=== PATIENT | female | born 1950 | race Caucasian/White ===

== ENCOUNTER 2017-01-29 08:20 | Inpatient (IN) | payer MEDICARE, BC ==
[2017-01-27 11:53] LABS: HEMATOCRIT 32.6 % (35.0-45.0); HEMOGLOBIN 10.5 gm/dL (12.0-16.0); MEAN CELL VOLUME 90.7 FL (83-96); MEAN CORPUSCULAR HEMOGLOBIN 29.3 PG (28-34); MEAN CORPUSCULAR HGB CONC 32.3 g/dL (30-36); MEAN PLATELET VOLUME 8.7 FL (6.5-11.5); RED BLOOD COUNT 3.6 X10e (3.90-5.30)
[2017-01-27 12:10] LABS: INR 1.9
[2017-01-27 12:43] LABS: BUN/CREATININE RATIO 17.82; CALCIUM SERUM 9.2 mg/dL (8.4-10.2); CREATININE SERUM 2.3 mg/dL (0.6-1.4); GLOM FILT RATE Estimated 21.3 mL/min (>60); POTASSIUM 3.8 mmol/L (3.5-5.1)
[2017-01-27 17:47] LABS: CK TOTAL 41 IU/L (26-140)
[2017-01-27 18:07] LABS: URINE APPEARANCE CLEAR; URINE BILIRUBIN NEG (NEG); URINE BLOOD NEG (NEG); URINE COLOR YELLOW; URINE GLUCOSE NEG (NEG); URINE KETONE NEG (NEG); URINE LEUKOCYTE ESTERASE 1+ (NEG); URINE NITRATE NEG (NEG); URINE PROTEIN NEG (NEG); URINE SPECIFIC GRAVITY 1.014 (1.003-1.035); URINE UROBILINOGEN 0.2 MG/DL (NEG)
[2017-01-27 18:10] LABS: URINE BACTERIA AUWI 1+ (NEGATIVE); URINE SQUAMOUS EPITHELIAL CELL OCC /[HPF]
[2017-01-28 06:27] LABS: HEMATOCRIT 32.3 % (35.0-45.0); HEMOGLOBIN 10.3 gm/dL (12.0-16.0); MEAN CELL VOLUME 90.5 FL (83-96); RED BLOOD COUNT 3.57 X10e (3.90-5.30); RED CELL DISTRIBUTION WIDTH 17.2 % (11.0-15.5); WHITE BLOOD COUNT 14.9 X10e3 (4.0-10.5)
[2017-01-28 06:41] LABS: INR 1.9; PROTHROMBIN TIME (PATIENT) 20.5 SECONDS (9.6-11.5)
[2017-01-28 07:11] LABS: BUN/CREATININE RATIO 20.86; CALCIUM SERUM 9.8 mg/dL (8.4-10.2); CREATININE SERUM 2.3 mg/dL (0.6-1.4); GLOM FILT RATE Estimated 21.3 mL/min (>60); POTASSIUM 4.2 mmol/L (3.5-5.1)
--- NOTE | ~2017-01-29 | CO ---
Unit #: [id number] #: [id number] Patient: ELISE SALGUERO [id number] [address] [place], [place] [address] [id number] I MR#: [id number] NAME: ELISE SALGUERO ROOM: 576 Age: 66 Sex: F Admission Date: 01/27/2017 : 1950 Attending Physician: Charlotte Zavaleta M.D. CONSULTATION REPORT REASON FOR CONSULTATION Respiratory failure and pneumonia. CHIEF COMPLAINT Shortness of breath. HISTORY OF PRESENT ILLNESS This patient basically is a 66-year-old female with past medical history of congestive heart failure and cardiomyopathy status post aortic and tricuspid valve replacement. She is on chronic anticoagulation. Has a history of atrial fibrillation. She had a recent stroke in September 2016. Recovered from that with some swallowing difficulty. Continues to smoke about 10 cigarettes per day. Presented with complaint of generalized weakness and mild shortness of breath. At an outside facility was found to have possible right-sided pneumonia on chest x-ray. I am seeing the patient at the bedside. Currently on 3 liters of oxygen, complaining of mild exertional dyspnea, some cough especially during eating. She was found to have elevated white count at 18,000 on admission at an outside facility and was started on antibiotics. She does complain of mild chills and rigors for the last few days. She had recent treatment with oral antibiotics as an outpatient and was also likely given p.o. steroids, as well. is sitting at the bedside today. The patient denies any recent history of travelling. No chest pain at present. REVIEW OF SYSTEMS Positive pallor. No edema. No cyanosis. No jaundice. Rest is as per history of present illness. The rest of a 12-point review of systems has been reviewed and is negative. PAST MEDICAL HISTORY 1. Aortic valve replacement. 2. Mitral valve replacement. 3. Cardiomyopathy. 4. Atrial fibrillation. 5. Hypertension. 6. Pacemaker placement. 7. History of recent stroke. PAST SURGICAL HISTORY Valve replacements, as discussed above. HOME MEDICATIONS Aspirin, Lipitor, digoxin, Lasix, iron, Synthroid, lisinopril, Metoprolol, Namenda, Paxil, venlafaxine, vitamin B12, vitamin B6 and Coumadin. Unit #: [id number] #: [id number] Patient: ELISE SALGUERO PHYSICAL EXAM TODAY VITAL SIGNS: Temperature is 97, pulse 65, respirations 16, blood pressure 120/52. She is on 3 liters oxygen, not using any accessory muscles. NEUROLOGIC: Awake, alert and oriented x3. CVS: S1, S2. RESPIRATORY: Bilateral mild basilar rhonchi. GI: Nontender. Soft. Bowel sounds positive. EXTREMITIES: No edema. SKIN: No rashes, no ulcer. LYMPHATIC: No lymphadenopathy. MUSCULOSKELETAL: No abnormality. DIAGNOSTIC STUDIES IMAGING: Chest x-ray reviewed. Possible right-sided infiltrate with volume overload and underlying emphysema. LABORATORY: INR is 1.9. Her white count is 11. Creatinine is 2.3. ASSESSMENT 1. Acute congestive heart failure exacerbation. 2. History of chronic kidney disease. 3. Recent stroke. 4. Possible aspiration pneumonia. 5. Leukocytosis. PLAN At this point plan is to continue oxygen, bronchodilator, diuresis. Follow the cultures. Order a noncontrast CT of the chest, procalcitonin level. Will continue to monitor. Swallow evaluation has been requested. Exercise oximetry will be ordered. The patient has been counselled regarding smoking cessation. Discussed with the patient's family at the bedside. Thank you very much for this consultation. Will continue to follow along with you. Dictated by... Alejandra Breen/fannie TD: 01/27/2017 14:59 JOB #: [id number] CONSULTATION REPORT Page 1 of 1 X Luciano Phillip MD CONSULTATION REPORT
--- NOTE | ~2017-01-29 | CO ---
Unit #: [id number] #: [id number] Patient: ELISE SALGUERO [id number] [address] [place], [place] [address] [id number] I MR#: [id number] NAME: ELISE SALGUERO ROOM: 576 Age: 66 Sex: F Admission Date: 01/27/2017 : 1950 Attending Physician: Charlotte Zavaleta M.D. Consultation Date: 01/28/2017 CONSULTATION REPORT REASON FOR CONSULTATION Renal insufficiency. Thank you very much for asking me to see this patient in consultation. Ms. Elise Salguero is a 66-year-old, female who has a history of valvular heart disease, status post aortic and mitral valve replacement in 2013 with mechanical valves, history of some mild decrease EF on echo in the past who apparently went to [facility] emergency room due to weakness, some cough, nonproductive, no fevers or chills, just weakness and was transferred here for further workup and treatment. Patient was noted to have a creatinine of 2.3 here, it was 1.98 there. Patient was given some IV diuretics there for possible heart failure. Patient is accompanied by her and there is a caregiver also. Patient apparently in the past when she had her stroke several years ago, was told that she had abnormal kidney function and needed to see a kidney doctor, although she has not done that. Patient denies any long-term nonsteroidal use. Patient currently is alert. She denies any chest pain, shortness of breath, nausea, or vomiting currently. PAST MEDICAL HISTORY She has a history of a valvular heart disease, status post aortic and mitral valve replacement. She has a history of atrial fibrillation, sick sinus syndrome, status post pacemaker. She has a history of hypothyroidism. She has a history of gout. History of CVA. History of hypertension. History of COPD. History of a PE and history of rheumatic heart disease in the past. She has also a history of underlying dementia. History of iron deficiency anemia. She is also status post PEG placement for difficulty swallowing. She is status post coronary artery bypass graft as well. MEDICATIONS AT HOME Included Coumadin, Paxil, magnesium, inhalers, alprazolam, Lanoxin 4 days a week, levothyroxine, metoprolol, Namzaric, Norvasc 2.5 mg a day, Effexor, Betapace, multivitamins. CURRENT MEDICATIONS Levothyroxine, Zofran, Aricept, Namenda, pyridoxine, B12, Paxil, Maxipime, Coumadin, Combivent inhaler, Lopressor, Effexor, Norvasc, Niferex, Lanoxin, magnesium, aspirin, Xanax. ALLERGIES She is allergic to penicillin and sulfa. SOCIAL HISTORY Unit #: [id number] #: [id number] Patient: ELISE SALGUERO She still smokes according to her caregiver. . No alcohol. FAMILY HISTORY Noncontributory. REVIEW OF SYSTEMS As mentioned in the HPI. She denies any fevers, chills, visual problems, sinus problems, occasional cough, no hemoptysis, no neck pain or neck stiffness. No chest pain. She has no shortness of breath today. No abdominal pain. No problems urinating, starting stopping or burning. No lower extremity swelling. No recent seizures or strokes. PHYSICAL EXAMINATION GENERAL: She is alert and oriented. VITAL SIGNS: Temperature is 99.5, pulse 65-72, blood pressure 120 to 148/48 to 72. She had a 720 in and out x4. HEENT: She is normocephalic, atraumatic. Her pupils are equal, round and reactive to light. Extraocular muscles are intact. Hearing is decreased bilaterally but able to answer questions. Mouth is clear. No erythema and no exudates. NECK: Supple. No JVD. No adenopathy. CARDIAC: She appears to have a fairly regular rhythm without a rub. No S3 or S4. LUNGS: Occasional rhonchi only. No rales are appreciated. ABDOMEN: Bowel sounds positive. She has a feeding tube in upper abdomen, nontender, soft. EXTREMITIES: She has no lower extremity swelling. Her pulses are intact in upper and lower extremities. JOINTS: No joint pain or joint swelling. SKIN: No acute rashes. NEUROLOGIC: She is alert and able to move all extremities. : Deferred. DIAGNOSTIC STUDIES IMAGING STUDIES: Chest x-ray that showed cardiomegaly, no other abnormality. She had a CT of the chest without contrast that shows some atelectasis in the right lower lobe. Enlarged lymph node. No other major findings except for atrophy of her left kidney. LABORATORY STUDIES: Her sodium today is 137, potassium 4.2, chloride 107, bicarb is 19, BUN 48, creatinine 2.3, glucose 111, calcium 98. Troponin is 0.07. Her cholesterol is 207. CPK is 42. Her TSH is 0.36. Her procalcitonin is 0.12. Her INR is 1.9. Her hemoglobin is 10.3 with a white count of 14,900, platelets 251,000. Urinalysis shows specific gravity of 1.014. She has no proteinuria. She has 2-5 RBCs, 5-10 WBC, 1+ bacteria. Blood and urine cultures are pending. ASSESSMENT AND PLAN 1. Renal insufficiency: This is a lady who has probably chronic kidney disease at least by the history that I could tell but again I do not have any previous creatinines, except for it was 1.98 at [facility] two days ago. I would like to try to get a hold of some previous creatinines over the last couple of years or so to see if this is significantly chronic or not. Her urine has no significant proteinuria and questionable RBCs so I don't think she has any active glomerulonephritis going on. I do not see any evidence of any volume Unit #: [id number] #: [id number] Patient: ELISE SALGUERO on board. I am going to go ahead and give her two L of normal saline over the next 24 hours. Check a renal ultrasound. Check an SPEP and again get a hold of previous creatinines. Depending on what all this shows, depending on what further workup and treatment. For now, hold SELINA inhibitors and angiotensin receptor blockers, long-term PPI, nonsteroids, etc. 2. Possible UTI. On Maxipime and await urine culture results. 3. Heart disease as mentioned above. Workup underway. 4. History of CVA. 5. History of dysphagia. Swallowing study has been ordered. 6. History of COPD with still chronic smoking. Dictated by.Ruben Braswell M.D. LIZZETH/radha TD: 01/29/2017 07:12 JOB #: [id number] CONSULTATION REPORT Page 1 of 1 X Primo Braswell MD X CONSULTATION REPORT
--- NOTE | ~2017-01-29 | CR63 ---
[facility] A Service of [facility] & [facility] RADIOLOGY TEXT RESULTS PATIENT: ELISE SALGUERO LOCATION: [facility] 57- : [birth year] UNIT #: [id number] AGE: [address]: Charlotte Zavaleta MD SEX: F ORDER DR: [id number] [facility] [address] [place], [place] [address] [id number] I MR#: [id number] Acc #: [id number] NAME: ELISE SALGUERO : 1950 SEX: F STUDY DATE/TIME: 01/27/2017 14:39 UNIT: [facility] ROOM: [facility] STUDY DESCRIPTION: CR Chest 2 View Attending Physician: Charlotte Zavaleta M.D. Ordering Physician: Regulo Dawn M.D. MEDICAL IMAGING REPORT This report is preliminary unless electronic signature is present EXAM Chest x-ray 01/27 INDICATIONS Shortness of air and CHF. Symptoms started yesterday. History of smoking and CHF. FINDINGS PA and lateral views of the chest compared with 01/27/2014 at 05:38 hours. Right IJ line has been removed. Cardiomegaly stable status post valve repair and pacer placement. The lungs are clear. No pneumothorax. There is atherosclerotic disease in the aorta. IMPRESSION Stable cardiomegaly. History of valve repair. No acute findings in the chest. Dictated by... Brett Ponce Jr., M.D. THIS IS AN ELECTRONICALLY VERIFIED REPORT Brett Ponce Jr., M.D. at 01/27/2017 3:32 PM WILL/xiao TD: 01/27/2017 15:23 JOB #: [id number] MEDICAL IMAGING REPORT Page 1 of 1 COPY
--- NOTE | ~2017-01-29 | CT57 ---
[facility] A Service of [facility] & [facility] RADIOLOGY TEXT RESULTS PATIENT: ELISE SALGUERO LOCATION: [facility] 576-01 : [birth year] UNIT #: [id number] AGE: [address]: Charlotte Zavaleta MD SEX: F ORDER DR: [id number] [facility] [address] [place], [place] [address] [id number] I MR#: [id number] Acc #: [id number] NAME: ELISE SALGUERO : 1950 SEX: F STUDY DATE/TIME: 01/27/2017 14:44 UNIT: [facility] ROOM: [facility] STUDY DESCRIPTION: CT Chest Wo Cont Attending Physician: Charlotte Zavaleta M.D. Ordering Physician: Luciano Phillip M.D. MEDICAL IMAGING REPORT This report is preliminary unless electronic signature is present EXAM CT chest without contrast. HISTORY Cough, congestion, shortness of air for 2 days. [address]neumonia. TECHNIQUE This CT exam was performed with one or more of the following radiation dose reduction techniques: automatic exposure control, adjustment of mA and/or kV according to patient size, and iterative reconstruction. FINDINGS CT chest without contrast demonstrates subsegmental atelectasis in the posterior right lower lobe, and minimal atelectasis or scarring in the inferior right middle lobe. No airspace infiltrates. No pleural effusions. Mild pretracheal adenopathy measures 1.3 cm. No additional adenopathy. Sternotomy with aortic valve and mitral valve and tricuspid valve replacement. Moderately severe dilatation of the left atrium. Images of the upper abdomen demonstrate gastrostomy tube extends into the stomach. Severe generalized left renal parenchymal atrophy. Moderate parenchymal scarring in the partly visualized posterior right kidney. Multiple small gallstones. IMPRESSION 1. Mild atelectasis in the posterior right lower lobe and minimal linear atelectasis or scarring in the lateral and inferior right middle lobe. 2. No evidence of active disease in the lungs. 3. Single mildly enlarged pretracheal lymph node measures 1.3 cm. No additional adenopathy. 4. Sternotomy and cardiac valve prostheses with moderately severe dilatation of the left atrium. 5. Findings in the upper abdomen occlude gallstones, severe atrophy of the left kidney, and parenchymal scarring in the right kidney. [facility] A Service of [facility] RADIOLOGY TEXT RESULTS PATIENT: ELISE SALGUERO LOCATION: [facility] 576-01 : [birth year] UNIT #: [id number] AGE: [address]: Charlotte Zavaleta MD SEX: F ORDER DR: Dictated by... Ke Johnson M.D. THIS IS AN ELECTRONICALLY VERIFIED REPORT Ke Johnson M.D. at 01/27/2017 11:25 PM MARLENI/lavelle TD: 01/27/2017 15:54 JOB #: [id number] MEDICAL IMAGING REPORT Page 1 of 1 COPY
--- NOTE | ~2017-01-29 | EKG ---
PATIENT: ELISE SALGUERO UNIT #: [id number] Ventricular Rate: 67 BPM Atrial Rate: 67 BPM P-R Interval: 368 ms QRS Duration: 214 ms Q-T Interval: 538 ms QTC Calculation(Bezet): 568 ms Calculated R [place]: -45 degrees Calculated T [place]: 120 degrees Diagnosis Line: AV sequential or dual chamber electronic pacemaker Diagnosis Line: No previous ECGs available Diagnosis Line: Confirmed by MARILUZ MCGREGOR MD ([id number]) on Diagnosis Line: 01/31/2017 2:09:09 PM INTERPRETING MD: VALERIE
--- NOTE | ~2017-01-29 | A ---
[facility] Therapy DATE: 01/27/17 Patient: ELISE ELLIOTT JOSE M Physician: CELINE Address: [address] [place] [address] Room/Bed: [address] [place] [address], Zip: [place] [address] Admit Date: 01/27/17 Date of : [birth year] Height: 5 0 Weight: 113 51.4 NUTRITIONAL ASSESSMENT: REASON: Consult 66 yo female admitted for CHF PMH: Hypothyroidism, gout, stroke, dysphagia, HTN, s/p PEG Anthropometrics: Ht: 5'0" Wt: 51.4 kg (113#) BMI: 22.1 Labs: BUN 41, Creat 2.3, GFR 21.3 Meds: Vitamin B12, Coumadin, Vitamin B I/O & Bowel function: last BM unknown Skin Integrity: PEG in place Estimated Nutrition Needs: 5285-1734 kcal (25-30 kcal/kg) 51-62 g protein (1.0-1.2 g/kg) Assessment: Chart reviewed, events noted. Pt and pt's family was in room during time of visit. Pt had PEG placed 6-8 weeks ago 2' difficulty swallowing and wt loss. Per pt's family, pt's wt has been fluctuating since between 113-121#, stating UBW is ~117-118#. Pt's family reported bolusing Ensure if pt's intake is decreased that day. Pt reports consuming ~2 meals/d. LEAD NETWORK ARCHITECT eval pt and deemed pt appropriate for diet advancement- mech soft + NDD2 + nectar thick liquids. Plans in place for video swallow in the morning (01/28). RD encouraged adequate calorie and protein intake. Pt agreed to Ensure Pudding w/ lunch daily. RD also emphasized use of standard formula in place of Ensure for additional vitamins and minerals. Pt and family reported no questions at this time. RD to follow. See recommendations below. Dx: Inadequate oral intake RT dysphagia AEB pt and family report above, wt loss. Intervention: 1. Vanilla Ensure pudding daily 2. Jevity 1.2 BID w/ breakfast meal Monitoring, Evaluation and Goals: 1. PO intake; consume <75% of meals and supplements 2. Enteral nutrition; tolerance of bolus feeds 3. Weight; prevent unintentional weight loss [facility] DATE: 01/27/17 Patient: ELISE SALGUERO Physician: CELINE Address: [address] [place] [address] Room/Bed: [address] [place] [address], Zip: [place] [address] Admit Date: 01/27/17 Date of : [birth year] Height: 5 0 Weight: 113 51.4 Recommendations: 1. Order Vanilla Ensure pudding once daily w/ lunch. 2. Order bolus feeds of Jevity 1.2 BID w/ breakfast meal. 3. Appreciate family and staff to encourage adequate PO and supplement intake. 4. Contact homehealth to see if standard formula is covered under insurance. Pt is at a moderate nutritional risk. RD will f/u per protocol. Respectfully, Rena Gonzales, Custom Decorating Consultant Lis Reeves MS, RD, LD [facility] cc: client file
--- NOTE | ~2017-01-29 | US77 ---
[facility] A Service of [facility] RADIOLOGY TEXT RESULTS PATIENT: ELISE SALGUERO LOCATION: [facility] 57- : [birth year] UNIT #: [id number] AGE: [address]: Charlotte Zavaleta MD SEX: F ORDER DR: [id number] [facility] [address] [place], [place] [address] [id number] I MR#: [id number] Acc #: [id number] NAME: ELISE SALGUERO : 1950 SEX: F STUDY DATE/TIME: 01/28/2017 15:15 UNIT: [facility] ROOM: [facility] STUDY DESCRIPTION: US Kidney Bilateral Complete Attending Physician: Charlotte Zavaleta M.D. Ordering Physician: Vern Brasewll M.D. MEDICAL IMAGING REPORT This report is preliminary unless electronic signature is present EXAM Renal ultrasound 01/28/2017 HISTORY Acute renal failure, abnormal renal function tests on 01/28/2017 with elevated BUN of 48, elevated creatinine of 2.3. Abnormally low GFR of 21. FINDINGS Right kidney measures 10 cm while the left kidney measures 7 cm in longitudinal dimensions. There is no evidence of hydronephrosis or nephrolithiasis. No cystic or solid mass lesions were seen on either kidney. There is normal renal cortical echogenicity. Images of the bladder are normal. The uterus is diffusely enlarged and contains multiple fibroids. IMPRESSION 1. Negative renal ultrasound. 2. Images of the bladder are normal. 3. Diffusely enlarged leiomyomatous uterus. Dictated by... Jorge Alberto Monteiro M.D. THIS IS AN ELECTRONICALLY VERIFIED REPORT Jorge Alberto Monteiro M.D. at 01/29/2017 8:15 AM ORLY/xiao TD: 01/28/2017 18:44 JOB #: [id number] MEDICAL IMAGING REPORT Page 1 of 1 COPY
--- NOTE | ~2017-01-29 | HP ---
Unit #: [id number] #: [id number] Patient: ELISE SALGUERO [id number] [address] [place], [place] [address] [id number] MR#: [id number] NAME: ELISE SALGUERO ROOM: 576 Age: 66 Sex: F Admission Date: 01/27/2017 : 1950 Attending Physician: Charlotte Zavaleta M.D. HISTORY AND PHYSICAL HISTORY OF PRESENT ILLNESS This is a 66-year-old white female known to Dr. Bello with the past medical history of valvular heart disease with aortic insufficiency and mitral stenosis. The patient underwent a mechanical mitral and aortic valve replacement on 01/23/2014 with a tricuspid annuloplasty ring and coronary artery bypass grafting with saphenous vein graft to the PDA by Cristopher Peguero. Additional past medical history includes atrial fibrillation/atrial flutter, permanent pacemaker due to sick sinus syndrome, history of reported PE, hypertension, and active tobacco abuse. The patient also has a history of cerebrovascular accidents with her most recent event in September 2016 at the [facility]. A CODY was completed on 09/08/2016 and revealed a well-seated mitral prosthetic valve and aortic valve. There was no ASD, VSD, or PFO. There was no thrombus seen. She presented to [facility] on 01/26/2017 with complaints of weakness. She has also had some shortness of breath and a cough for the last three days. The patient's family reports a possible fever but they did not check her temperature. She has had a poor appetite. Her caregiver states that she has not been following her dietary restrictions after her stroke. She was supposed to be on nectar thick liquids but has been eating whatever she wants. She does have a PEG tube and uses Ensure with her tube but takes medications and other forms of nutrition orally. She has been observed with swallowing abnormalities and sometimes liquids cannot be swallowed at all and come down the side of her face during attempts to swallow. There are no reports of chest pain, PND, or orthopnea. There are no reports of lower extremity edema. The patient was sent from [facility] to rehab. She has only been home for the last couple of weeks. Three weeks ago, she was able to go outside and walk. However, recently, she has lost all of her strength and has been very weak. It has been difficult to get her out of bed. In the emergency department at [facility], her white blood cell count was 18.5. Hemoglobin was 11.2. Sodium 142 with a potassium of 4.8. Her creatinine was elevated at 1.94. Previous creatinine was 1.September. INR was 2.32. Initial cardiac enzymes were negative. EKG revealed a paced rhythm. BNP was elevated at 2556. She was given a dose of IV Lasix. She was swabbed for flu and strep. Blood cultures were obtained. Chest x-ray revealed congestive heart failure with edema and a right-sided effusion. She was given a dose of Levaquin after the blood cultures were obtained. She was also given one dose of Diuril. She was transferred to [facility] for congestive heart failure and leukocytosis. Strep and flu were negative. Lactic acid was 1.1. Unit #: [id number] #: [id number] Patient: ELISE SALGUERO PAST MEDICAL HISTORY 1. Coronary artery disease with severe aortic insufficiency and mitral stenosis, status post [facility] mechanical aortic valve replacement and mitral valve replacement. Tricuspid repair with annuloplasty ring. Coronary artery bypass grafting times one with saphenous vein graft to the PDA 01/23/2014 per Cristopher Peguero at [facility]. 2. CODY 09/18/2016 revealed left ventricular ejection fraction of 40% to 45%. Dilated left atrium. Well-seated mitral and aortic valve. Status post tricuspid annuloplasty ring. No ASD, VSD, or PFO. No thrombus. 3. History of atrial flutter/atrial fibrillation. 4. Permanent pacemaker due to sick sinus syndrome. 5. History of PE. 6. Hypertension. 7. Cerebrovascular accident September 2016 with left-sided weakness. 8. CVA times 3. 9. Dementia. 10. Iron-deficiency anemia. 11. Depression. 12. History of remote PEG tube. 13. Hypothyroidism. 14. Gout. 15. Active tobacco abuse. PAST SURGICAL HISTORY 1. Coronary artery bypass grafting with mechanical aortic and mitral valve replacement with tricuspid repair. 2. Permanent pacemaker. 3. PEG tube. 4. Tonsillectomy. HOME MEDICATIONS 1. Warfarin 10 mg alternating with 15 mg every other day. 2. Paxil 10 mg p.o. b.i.d. 3. Magnesium oxide 400 mg p.o. daily. 4. Advair one puff inhalation b.i.d. 5. Alprazolam 0.5 mg p.o. q.i.d. 6. Digoxin 0.125 mg p.o. daily on Wednesday, Wednesday, Wednesday and Wednesday. 7. Iron 150 mg p.o. daily. 8. Levothyroxine 75 mcg p.o. daily. 9. Toprol tartrate 25 mg p.o. t.i.d. 10. Namzaric 28/10 mg p.o. h.s. 11. Norvasc 2.5 mg p.o. daily. 12. Betapace 80 mg p.o. b.i.d. 13. Effexor 100 mg p.o. daily. 14. Vitamin B-complex one capsule p.o. b.i.d. 15. Vitamin B12 1000 mcg p.o. daily. 16. Vitamin B6 100 mg p.o. b.i.d. ALLERGIES No known documented allergies. SOCIAL HISTORY The patient lives in a private residence with her . She is an active smoker and smokes one-half pack of cigarettes per day. There are no reports of alcohol or illicit drug use. Unit #: [id number] #: [id number] Patient: ELISE SALGUERO FAMILY HISTORY Significant for heart disease. Her father had a myocardial infarction in his 50s. REVIEW OF SYSTEMS Ten-point review of systems negative except for details as noted above. PHYSICAL EXAMINATION VITAL SIGNS: Temperature 98.1, pulse 65, blood pressure 120/54. GENERAL: This is a 66-year-old female in no acute distress. She is pleasantly confused. SKIN: Warm and dry. NECK: Supple. No jugular vein distention. No hepatojugular reflux. Normal carotid upstrokes. No carotid bruits auscultated. HEART: S1, S2. Regular rate and rhythm. No murmurs, rubs, or gallops. LUNGS: Respirations even and unlabored. Occasional wheezes. ABDOMEN: Soft, nontender, nondistended. Positive bowel sounds auscultated times four quadrants. No ascites noted. EXTREMITIES: Bilateral lower extremities have no pretibial pitting edema. DP and PT pulses are 2+. Capillary refill is less than 3 seconds. DIAGNOSTIC STUDIES LABORATORY: White blood cell count 11, hemoglobin 10.5, hematocrit 32.6, platelets 249. Sodium 136, potassium 3.8, chloride 103, CO2 is 22, BUN 41, creatinine 2.3, glucose 88. Troponin 0.07. Total cholesterol 207, triglycerides 156, LDL 131, HDL 45. TSH 0.36. INR 1.9. Blood cultures are pending. Urinalysis pending. IMAGING: Chest x-ray reveals stable cardiomegaly. History of valve repair. No acute findings in the chest. CT of the chest without contrast reveals mild atelectasis in the posterior right lower lobe, minimal linear atelectasis or scarring in the lateral inferior right middle lobe. Single mildly enlarged pretracheal lymph node measuring 1.3 cm. Sternotomy and cardiac valve prosthesis with moderately severe dilatation of the left atrium. Findings in the upper abdomen include gallstones, severe atrophy of the left kidney and parenchymal scarring in the right kidney. CARDIOVASCULAR: EKG reveals a paced rhythm. IMPRESSION 1. Possible aspiration pneumonia with dysphagia. 2. Status post permanent pacemaker due to sick sinus syndrome. 3. Status post mechanical mitral and aortic valve replacement with tricuspid repair and coronary artery bypass grafting times 1 in December 2013. 4. Severe peripheral arterial disease. 5. Chronic obstructive pulmonary disease. 6. Old cerebrovascular accident with left-sided weakness and speech dysfunction. 7. Chronic kidney disease secondary to nephrosclerosis. 8. History of atrial flutter/atrial fibrillation. 9. Active tobacco abuse. PLAN 1. The patient presented to [facility] with complaints of shortness of breath and weakness. She was diuresed and started on Unit #: [id number] #: [id number] Patient: ELISE SALGUERO antibiotics. 2. She was transferred to [facility] for further evaluation. 3. On exam, there is no evidence of congestive heart failure. Will repeat labs and chest x-ray. 4. There is concern that the patient could be aspirating due to difficulty with swallowing. Speech therapy will be consulted as well as the viner operator. 5. Pulmonology will be consulted for possible pneumonia. 6. The patient will be continued on Coumadin, beta lucero, digoxin, and Norvasc. 7. No SELINA or ARB will be prescribed due to renal insufficiency. 8. If creatinine remains elevated, may need a nephrology consult. 9. The patient has been advised to refrain from tobacco abuse. Dictated by Xenia Feranndez APRN for Alejandra Whitten TD: 01/27/2017 19:25 JOB #: [id number] HISTORY AND PHYSICAL Page 1 of 1 X X HISTORY AND PHYSICAL
[2017-01-29 05:56] LABS: HEMATOCRIT 29.2 % (35.0-45.0); HEMOGLOBIN 9.5 gm/dL (12.0-16.0); MEAN CELL VOLUME 90.5 FL (83-96); MEAN CORPUSCULAR HEMOGLOBIN 29.4 PG (28-34); MEAN CORPUSCULAR HGB CONC 32.5 g/dL (30-36); RED BLOOD COUNT 3.22 X10e (3.90-5.30); WHITE BLOOD COUNT 8.5 X10e3 (4.0-10.5)
[2017-01-29 06:19] LABS: INR 2.3; PROTHROMBIN TIME (PATIENT) 25.5 SECONDS (9.6-11.5)
[2017-01-29 06:23] LABS: ALBUMIN SERUM 3.2 g/dL (3.5-5.0); BILIRUBIN,TOTAL 0.6 mg/dL (0.2-2.0); BUN/CREATININE RATIO 22.63; CALCIUM SERUM 8.8 mg/dL (8.4-10.2); CREATININE SERUM 1.9 mg/dL (0.6-1.4); DIGOXIN (LANOXIN) 0.2 ng/ml (1.0-2.0); GLOM FILT RATE Estimated 26.8 mL/min (>60); MAGNESIUM 2.1 mg/dL (1.6-3.0); POTASSIUM 3.4 mmol/L (3.5-5.1); PROTEIN TOTAL SERUM 6.5 g/dL (6.0-8.3)
[~2017-01-29 08:20] MED LIST: ADVAIR 250-501 EACH INH; ALPRAZOLAM0.5 MG PO; B COMPLEX1 CA1 PO; B-121000 MC1 PO; BETAPACE80 MG PO; EFFEXOR100 MG PO; LANOXIN125 MCG PO; LEVOTHYROXINE75 MC1 PO; MAGNESIUM400 MG PO; METOPROLOL TAR25 MG PO; NAMZARIC 28 MG1 EACH PO; NORVASC2.5 MG PO; PAXIL10 MG PO; VITAMIN B-650 MG PO; WARFARIN SODIUM10 M1 PO; [UNRECOGNIZED DRUG - CODE] PO
[2017-01-29] MEDS ORDERED: AMIODARONE HCL400 MG PO (15:42)
== END 2017-01-29 17:05 | disposition home or self-care (01) | DRG 177 ==
LOC: C5C 08:20
PROVIDERS: Internal Medicine Nephrology; Nurse Practitioner Family
DX: J69.0 Pneumonitis due to inhalation of food and vomit (principal); J96.01 Acute respiratory failure with hypoxia; I69.954 Hemiplegia and hemiparesis following unspecified cerebrovascular disease affecting left non-dominant side; I48.91 Unspecified atrial fibrillation; I48.92 Unspecified atrial flutter; I13.0 Hypertensive heart and chronic kidney disease with heart failure and stage 1 through stage 4 chronic kidney disease, or unspecified chronic kidney disease; I50.9 Heart failure, unspecified; N18.4 Chronic kidney disease, stage 4 (severe); N39.0 Urinary tract infection, site not specified; Z95.0 Presence of cardiac pacemaker; Z95.2 Presence of prosthetic heart valve; Z95.1 Presence of aortocoronary bypass graft; I73.9 Peripheral vascular disease, unspecified; J44.9 Chronic obstructive pulmonary disease, unspecified; F17.210 Nicotine dependence, cigarettes, uncomplicated; D72.829 Elevated white blood cell count, unspecified; F03.90 Unspecified dementia, unspecified severity, without behavioral disturbance, psychotic disturbance, mood disturbance, and anxiety; D50.9 Iron deficiency anemia, unspecified; E03.9 Hypothyroidism, unspecified; Z86.711 Personal history of pulmonary embolism; Z88.0 Allergy status to penicillin; Z88.2 Allergy status to sulfonamides
CPT/HCPCS: 71020; 71250; 74230; 76770; 80048; 80053; 80061; 80162; 81003; 82308; 82550; 83735; 83880; 84443; 84484; 85027; 85610; 86334; 87040; 87086; 92526; 92610; 92611; 93005; 94640; 94664; 94760; 97161; 97166; G8978-GP; G8979-GP; G8980-GP; G8987-GO; G8988-GO; G8989-GO; G8996-GN; G8997-GN; G8998-GN; J0692